=== PATIENT | female | born 1960 | race Caucasian/White ===

== ENCOUNTER 2024-10-15 05:43 | Emergency (ER) | payer OTHER ==
--- NOTE | 2024-10-15 06:21 | ED ---
Fall HPI - General Chief Complaint: Extremity Injury, Upper Stated Complaint: [facility] - Fall, L Hip/Arm Pain Time Seen by Provider: 10/15/24 06:00 Source: patient, RN notes reviewed Mode of arrival: ambulatory Limitations: no limitations - History of Present Illness Initial Comments: This is a 64-year-old female who presents to the emergency department for a fall. Patient fell at work yesterday when trying to move boxes. She got her foot caught, causing her to trip and fall. She landed on her left side. Denies hitting her head or any loss of consciousness. Not taking any blood thinners. Most of the pain is over the left arm and left lower extremity. Specifically, the left forearm seems to be the most bothersome. When she woke up this morning she was having difficulty fully moving the arm. She does report some pain over the left hip and feels like her left lower leg is "pulling". She took some Advil before arrival which was somewhat helpful. MD Complaint: fall - Related Data Previous Rx's Medication Instructions Recorded traMADol HCL 50 mg PO Q6H PRN 3 Days #12 tab 10/15/24 Allergies Allergy/AdvReac Type Severity Reaction Status Date / Time acetaminophen [From Tylenol] AdvReac Nausea & Verified 10/15/24 05:53 Vomiting & Diarrhea latex AdvReac Itching Verified 10/15/24 05:53 Review of Systems ROS Statement: Those systems with pertinent positive or pertinent negative responses have been documented in the HPI. ROS Other: All systems not noted in ROS Statement are negative. Past Medical History Past Medical History: No Reported History History of Any Multi-Drug Resistant Organisms: None Reported Past Surgical History: No Surgical Hx Reported Past Psychological History: No Psychological Hx Reported Smoking Status: Never smoker Past Alcohol Use History: None Reported Past Drug Use History: None Reported General Exam Limitations: no limitations General appearance: alert, in no apparent distress Head exam: Present: atraumatic, normocephalic, normal inspection Respiratory exam: Present: normal lung sounds bilaterally. Absent: respiratory distress, wheezes, rales, rhonchi, stridor Cardiovascular Exam: Present: regular rate, normal rhythm, normal heart sounds. Absent: systolic murmur, diastolic murmur, rubs, gallop, clicks Extremities exam: Present: other (Tenderness to palpation over the left forearm. No ecchymosis or swelling. Range of motion limited by pain. 2+ radial pulses. Tenderness to palpation over the left hip and left femur. No swelling or ecchymosis. Full range of motion. 2+ DP and PT pulses) Neurological exam: Present: alert, oriented X3, CN II-XII intact Psychiatric exam: Present: normal affect, normal mood Skin exam: Present: warm, dry, intact, normal color. Absent: rash Course Vital Signs 10/15/24 10/15/24 10/15/24 05:46 08:19 08:52 Temperature 98.2 F 98 F 98 F Pulse Rate 91 75 74 Respiratory 20 18 18 Rate Blood Pressure 171/92 160/92 156/87 O2 Sat by Pulse 100 100 100 Oximetry Procedures - Orthopedic Splinting/Casting Injury #1 Side: left Upper Extremity Injury Location: elbow Upper Extremity Immobilizer: sling/shoulder immobilizer, posterior splint, f iberglass cast Medical Decision Making - Medical Decision Making This is a 64-year-old female who presents to the emergency department for a fall. Was pt. sent in by a medical professional or institution? @ -No Did you speak to anyone other than the patient for history? @ -No Did you review nursing and triage notes? @ -Yes, and I agree, it is accurate with regards to the patient's symptoms. Were old charts reviewed? @ -No Differential Diagnosis? @ -Differential Musculoskeletal Muscular strain, contusion, ligament sprain, fracture, arthritis, septic arthritis, bursitis, cellulitis, muscle spasm, nerve compression, DVT, arterial occlusion, herpes zoster, electrolyte abnormality, tumor.... This is not meant to be in all inclusive list EKG interpreted by me (3pts min.)? @ -Not obtained X-rays interpreted by me (1pt min.)? @ -X-ray of the left humerus, left femur, and left tib-fib obtained. My interpretation of all images identifies no acute fractures. X-ray of the left forearm obtained. My interpretation identifies an elbow joint effusion. X-ray of the left elbow obtained. My interpretation identifies a radial head fracture. CT interpreted by me (1pt min.)? @ -Not obtained U/S interpreted by me (1pt. min.)? @ -Not obtained What testing was considered but not performed? (CT, X-rays, U/S, labs)? Why? @ -None What meds were considered but not given? Why? @ -None Did you discuss the management of the patient with other professionals? @ -No Did you reconcile home meds? @ -No Was smoking cessation discussed for >3mins.? @ -No Was critical care preformed (if so, how long)? @ -No Were there social determinants of health that impacted care today? How? (Homelessness, low income, unemployed, alcoholism, drug addiction, transportation, low edu. Level, literacy, decrease access to med. care, fci, rehab)? @ -No Was there de-escalation of care discussed even if they declined? (Discuss DNR or withdrawal of care, Hospice)? @ -No What co-morbidities impacted this encounter? (DM, HTN, Smoking, COPD, CAD, Cancer, CVA, Hep., AIDS, mental health diagnosis, sleep apnea, morbid obesity)? @ -None Was patient admitted / discharged? @ -Discharged. We first obtained x-rays of the left humerus, left forearm, left femur, and left tib-fib. X-ray of the left forearm identified an underlying elbow joint effusion suggesting occult fracture or internal derangement. There is also question of a nondisplaced radial head fracture. Dedicated elbow views were advised. X-ray of the left elbow demonstrates a nondisplaced radial head fracture. Posterior splint was applied and then her arm was put in a sling. Prescription for tramadol provided to be taken sparingly when her pain is the most severe. She will otherwise continue to take her Aleve. Information for orthopedic follow-up provided. She is advised to contact them for a follow-up appointment and reevaluation. Patient discharged home in stable condition. Case discussed with ED attending Dr. Rasmussen. Return precautions reviewed in depth, the patient is instructed to return to the emergency department with any new, worsening, or concerning symptoms. Patient verbalized understanding. Undiagnosed new problem with uncertain prognosis? @ -None Drug Therapy requiring intensive monitoring for toxicity (Heparin, Nitro, Insulin, Cardizem)? @ -None Were any procedures done? @ -Left long-arm posterior splint applied Diagnosis/symptom? @ -Fall, left radial head fracture Acute, or Chronic, or Acute on Chronic? @ -Acute Uncomplicated (without systemic symptoms) or Complicated (systemic symptoms)? @ -Uncomplicated Side effects of treatment? @ -None Exacerbation, Progression, or Severe Exacerbation] @ -Not applicable Poses a threat to life or bodily function? @ -Will limit use of left arm for the mean time. - Radiology Data Radiology results: report reviewed, image reviewed Disposition Clinical Impression: Fall, Left radial head fracture Disposition: HOME SELF-CARE Instructions (If sedation given, give patient instructions): Elbow Fracture (ED), Splint Care (ED) Additional Instructions: Return to the emergency department with any new, worsening, or concerning symptoms. Continue to take Aleve as needed for pain relief. Take the tramadol sparingly when your pain is the most severe. Contact orthopedics as listed below. Let them know that you were seen in the emergency department and found to have a radial head fracture. They will schedule you for a follow-up appointment. Prescriptions: traMADol HCL 50 mg PO Q6H PRN 3 Days #12 tab PRN Reason: Pain Is patient prescribed a controlled substance at d/c from ED?: Yes When asked, does pt state using other controlled substances?: No If prescribed controlled substance>3 days was MAPS reviewed?: Prescribed <3 Days Referrals: None,Stated [Primary Care Provider] - 1-2 days Jf Aldana MD [STAFF PHYSICIAN] - 1-2 days Time of Disposition: 08:45
--- NOTE | 2024-10-15 07:15 | XR ---
EXAMINATION TYPE: XR humerus 2 views LT, XR forearm 2 views LT, XR tibia fibula 2 views LT, XR femur 2 views LT DATE OF EXAM: 10/15/2024 COMPARISON: NONE CLINICAL INDICATION: Female, 64 years old with pain after history of Fall; decreased range of motion to the left arm FINDINGS: Left humerus: Mild degenerative spurring at the AC joint. No acute humeral fracture is identified. Forearm: The lateral view shows underlying elbow joint effusion. Possible nondisplaced radial head fracture on the AP view of the humerus. No displaced fracture identified. No fracture of the more mid to distal radius or ulna. Wrist articulation appears grossly intact. [id number] degenerative change base of the thumb. Left femur: Mild degenerative change at the left hip with marginal spurring. Pelvic phleboliths. Degenerative spu rring in the patellofemoral compartment. Small suprapatellar knee joint effusion noted. No acute frac ture seen. Tibia/fibula: Ankle articulation appears grossly intact. No acute fracture seen. IMPRESSION: 1. Left humerus and forearm: Underlying elbow joint effusion suggesting occult fracture or internal d erangement. On one view, there is question of a nondisplaced radial head fracture. Dedicated elbow vi ews may be needed. 2. Left femur and tibia/fibula: Mild left hip OA. Mild patellofemoral compartmental OA. Small suprapa tellar knee joint effusion is nonspecific. No acute osseous abnormality seen. [facility], Workstation: [id number] [id number], 10/15/2024 7:13 AM
--- NOTE | 2024-10-15 08:18 | XR ---
EXAMINATION TYPE: XR elbow complete LT DATE OF EXAM: 10/15/2024 8:13 AM COMPARISON: Left humerus x-ray earlier today. CLINICAL INDICATION: Female, 64 years old with history of Fall, possible fx, pain TECHNIQUE: Frontal, lateral and oblique images of the left elbow are obtained. FINDINGS: There is confirmation of acute nondisplaced linear intra-articular fracture of the radial head. Abnormal fat pad signs are seen on lateral view. The overlying soft tissue appears unremarkable . IMPRESSION: There is confirmation of acute nondisplaced linear intra-articular fracture of the radia l head. [facility], , 10/15/2024 8:16 AM
[2024-10-15 08:20] VITALS: RESP 18; TEMP 98
[2024-10-15 08:53] VITALS: BP 156/87; PULSE 74
== END 2024-10-15 08:53 | disposition home or self-care (01) ==
LOC: EC 05:43
DX: S52.125A Nondisplaced fracture of head of left radius, initial encounter for closed fracture (principal); Z88.6 Allergy status to analgesic agent; Z91.040 Latex allergy status; W01.0XXA Fall on same level from slipping, tripping and stumbling without subsequent striking against object, initial encounter; Y99.0 Civilian activity done for income or pay
CPT/HCPCS: 29105; 99283

== ENCOUNTER → 2024-10-16 | Outpatient (CLI) | payer OTHER ==
--- NOTE | 2024-10-16 13:23 | XR ---
EXAMINATION TYPE: XR cervical spine comp DATE OF EXAM: 10/16/2024 1:06 PM COMPARISON: None. CLINICAL INDICATION: Female, 64 years old with history of S13.4XXA fall L lateral neck pain, pain TECHNIQUE: Frontal, lateral, oblique, and open mouth view of the cervical spine are obtained. FINDINGS: The cervical spine is visualized in its entirety from C1 thru the top of T1 level, it is s atisfactory in alignment without evidence of acute fracture or dislocation. The pre-vertebral soft t issue appears within normal limits. The C1-C2 articulation is within normal limits on the open mouth view. Vertebral body and disk space heights are within normal limits. The oblique images are within normal limits. Overlying soft tissue is unremarkable. IMPRESSION: No acute fracture or dislocation of the cervical spine. [facility], , 10/16/2024 1:21 PM
== END | disposition home or self-care (01) ==
LOC: RADXRMAIN 12:38
PROVIDERS: ATTEND Emergency Medicine
DX: S13.4XXA Sprain of ligaments of cervical spine, initial encounter (principal)
CPT/HCPCS: 72050